=== PATIENT | female | born 1970 ===

== ENCOUNTER 2022-09-10 15:25 | Inpatient (IN) | payer OTHER ==
[~2022-09-10] VITALS: Ht 157.5 cm; Wt 59.0 kg
[2022-09-11] MEDS ORDERED: LIPITOR PO (08:11)
[2022-09-11] MEDS ORDERED: EFFEXOR XR37.5 MG PO (08:12)
[2022-09-11] MEDS ORDERED: TENORMIN50 M1 PO (08:12)
[2022-09-11] MEDS ORDERED: ATI PO (08:13)
[2022-09-11] MEDS ORDERED: TRAZ PO (08:13)
[2022-09-11] MEDS ORDERED: MELATONIN10 MG PO (08:15)
[2022-09-15] MEDS ORDERED: LORAZEPAM1 MG (07:53)
[2022-09-15] MEDS ORDERED: PREGABALIN100 MG (07:54)
[2022-09-15] MEDS ORDERED: VENLAFAXINE HCL75 M1 (07:54)
[2022-09-15] MEDS ORDERED: ATORVASTATIN CA10 MG (07:54)
[2022-09-15] MEDS ORDERED: LORATADINE10 MG (07:54)
[2022-09-15] MEDS ORDERED: MONTELUKAST SOD10 MG (07:54)
[2022-09-15] MEDS ORDERED: ATENOLOL25 MG (07:54)
[2022-09-15] MEDS ORDERED: TRAZODONE HCL150 MG (07:54)
[2022-09-17] MEDS ORDERED: XARELTO10 MG PO (13:19)
[2022-09-17] MEDS ORDERED: NORFLEX100MG PO (13:20)
[2022-09-17] MEDS ORDERED: GABAPENTIN100 MG PO (13:20)
[2022-09-17] MEDS ORDERED: OXYC1TAB9 PO (13:21)
== END 2022-09-17 14:48 | DRG 470 ==
LOC: O/R 09-15 05:32 → SURH 09-15 05:32 → SURG 09-15 07:00 → O/R 09-15 08:09 → SURH 09-15 13:09
PROVIDERS: ADMIT Orthopaedic Surgery; ATTEND Orthopaedic Surgery
PROC: 0SRC0JZ Replacement of Right Knee Joint with Synthetic Substitute, Open Approach (ICD-10-PCS; principal; 2022-09-15 07:00)
DX: M17.11 Unilateral primary osteoarthritis, right knee (principal); D62 Acute posthemorrhagic anemia; M85.661 Other cyst of bone, right lower leg; I10 Essential (primary) hypertension; M79.7 Fibromyalgia; Z96.651 Presence of right artificial knee joint